=== PATIENT | female | born 1960 | race Caucasian/White ===

== ENCOUNTER 2019-07-07 13:17 | Emergency (ER) | payer BC, MEDICAID ==
[~2019-07-07] VITALS: Ht 162.6 cm; Wt 71.2 kg
[2019-07-07 13:57] VITALS: BP 125/48; Ht 162.6 cm; Wt 71.2 kg
== END 2019-07-07 15:20 | disposition home or self-care (01) ==
LOC: ED 13:17
DX: M75.51 Bursitis of right shoulder (principal); I10 Essential (primary) hypertension
CPT/HCPCS: J1885; J7512